=== PATIENT | female | born 1980 | race Hispanic/Latino ===

== ENCOUNTER 2019-08-10 09:30 | Emergency (ER) | payer OTHER ==
[2019-08-10] MEDS ORDERED: IBUPROFEN 800 MG TAB ONE (09:52)
[2019-08-10] MEDS ORDERED: TRAMADOL HCL 50 MG TABLET ONE (11:13)
== END 2019-08-10 12:02 | disposition home or self-care (01) ==
LOC: EDH 09:30
DX: B02.9 Zoster without complications (principal)

== ENCOUNTER 2024-07-09 16:43 | Emergency (ER) | payer SELFPAY ==
[~2024-07-09] VITALS: Ht 165.1 cm; Wt 61.2 kg
[2024-07-09 18:24] LABS: HEMATOCRIT 30.9 % (36-48); MEAN CORPUSCULAR HEMOGLOBIN 22.2 pg (27.0-33.0); MEAN CORPUSCULAR HGB CONC 30.1 g/dL (32.0-36.0); MEAN CORPUSCULAR VOLUME 73.7 fL (79-99); PLATELET COUNT (AUTO) 339 K/uL (130-400); RED BLOOD CELL COUNT(AUTO) 4.19 MIL/uL (4.00-5.50); RED CELL DISTRIBUTION WIDTH 16.4 % (11.0-15.5); WHITE BLOOD COUNT (AUTO) 9.9 K/uL (4.8-10.8)
[2024-07-09 18:33] LABS: CREATININE 0.8 mg/dL (0.5-1.0); POTASSIUM 3.9 mmol/L (3.5-5.1)
[2024-07-09 18:41] VITALS: BP 127/56; PULSE 65; RESP 16; TEMP 98.3; O2SAT 98
[2024-07-09] MEDS ORDERED: 0.9%NACL 1000ML 1,000 ML IV STA (18:58)
== END 2024-07-09 19:43 | disposition home or self-care (01) ==
LOC: EDH 16:43
DX: D64.9 Anemia, unspecified (principal); E86.0 Dehydration; R20.2 Paresthesia of skin; Z98.890 Other specified postprocedural states
CPT/HCPCS: 36415; 80048; 85027; 93005